=== PATIENT | male | born 1930 | race Caucasian/White ===

== ENCOUNTER → 2016-07-18 | Outpatient (CLI) | payer OTHER ==
[~2016-07-18] MED LIST: ATEN-173 PO; ATEN50TA8 PO; CMD2 PO; HYDC25 PO; HYDR25TA4 PO; LEVO25TA PO; LEVO50TA6 PO; LISI-725 PO; MULT-506 PO; PANT40TA PO; PRLSR20 PO; SIMV40TA2 PO; SIMV80TA2 PO; TCMD2 PO
[2016-07-18 09:39] LABS: BASO % 0.5 %; BASO ABS # 0.02 K/uL (0-0.2); COMPLETE YES; EOS % 3.4 %; IG% 0.2 %; LYMPH % 32.1 %; LYMPH ABS # 1.42 K/uL (1.2-3.4); MEAN CELL VOLUME 90.9 fL (80-100); MEAN PLATELET VOLUME 10.3 fL (7.4-10.4); MONO % 9.3 %; NEUT % 54.5 %; PLATELET COUNT 186 K/uL (130-400); RED BLOOD COUNT 4.73 M/uL (4.7-6.1); WHITE BLOOD COUNT 4.43 K/uL (4.8-10.8)
[2016-07-18 09:57] LABS: ESTIMATED AVERAGE GLUCOSE 120 mg/dl; HA1C FLAG Normal (Normal)
[2016-07-18 10:24] LABS: ALT/SGPT 20 U/L (12-78); AST/SGOT 14 U/L (15-37); BLOOD UREA NITROGEN 18 mg/dl (7-18); BUN/CREATININE RATIO 18.7 (10-20); CALCIUM 8.8 mg/dl (8.5-10.1); CARBON DIOXIDE 32 mmol/L (21-32); CHLORIDE 105 mmol/L (98-107); CHOLESTEROL 138 mg/dl (0-200); CREATININE 0.94 mg/dl (0.60-1.40); GLUCOSE 101 mg/dl (70-99); POTASSIUM 3.8 mmol/L (3.5-5.1); SODIUM 142 mmol/L (136-145)
[2016-07-18 10:25] LABS: RATIO 11.2 mcg/mg (0-30.0)
[2016-07-18 10:35] LABS: ALB/GLOB RATIO 1.1 (0.9-2); ALKALINE PHOSPHATASE 77 U/L (45-117); CHOLESTEROL/HDL RATIO 2.5; HDL CHOLESTEROL 55 mg/dl; LDL CHOLESTEROL CALCULATED 62 mg/dl; TRIGLYCERIDES 103 mg/dl (0-150); VERY LOW DENSITY LIPOPROT CALC 21 mg/dl
== END | disposition home or self-care (01) ==
LOC: C.LAB 08:55
PROVIDERS: ATTEND Nurse Practitioner Family
DX: I48.91 Unspecified atrial fibrillation (principal); E78.5 Hyperlipidemia, unspecified; I71.4 Abdominal aortic aneurysm, without rupture; R73.9 Hyperglycemia, unspecified; E88.81 Metabolic syndrome and other insulin resistance; I10 Essential (primary) hypertension; E03.9 Hypothyroidism, unspecified; K21.9 Gastro-esophageal reflux disease without esophagitis

== ENCOUNTER → 2016-10-02 | Day surgery (SDC) | payer OTHER ==
[2016-09-25 11:26] VITALS: BMI 23.0
[~2016-10-02] VITALS: Ht 182.9 cm; Wt 78.6 kg
[~2016-10-02] MED LIST changes: +LIDOCAINE HCL 2% 2 ML VIAL (20MG/ML) ONE; -PRLSR20 PO; +PROPOFOL IV EMULSION 10 MG/ML 20 ML VIAL IV ONE; -SIMV40TA2 PO
[2016-10-02 10:18] VITALS: Ht 182.9 cm; Wt 78.6 kg
--- NOTE | 2016-10-02 11:10 | Endo History and Physical ---
History & Physical Date of Service: Oct 02, 2016. Chief Complaint: DYSPHAGIA Referring Physician: MANJEET BARTH History of Present Illness 85 yo CM who presents for EGD secondary to dysphagia. Past Medical History Atrial Fibrillation, Arthritis, Cancer, High Cholesterol, Hypertension, Thyroid Disease Past Surgical History Hx Cardiac Surgery: Yes (CARDIOVERSION 1985 - UNSUCCESSFUL) Hx Internal Defibrillator: No Hx Pacemaker: No Hx Abdominal Surgery: Yes (OPEN APPY, AAA REPAIR) Hx of Implantable Prosthesis: No Hx Post-Op Nausea and Vomiting: No Hx Cancer Surgery: Yes (COLON RESECTION) Hx Thoracic Surgery: No Hx Orthopedic: Yes (RT/LT TKA, LT SHOULDER SCOPE) Hx Urinary Tract Surgery: No Family History Colon CA Social History Smoking Status: Former Smoker Hx Substance Use: No Hx Alcohol Use: Yes (RARELY) Allergies Coded Allergies: No Known Allergies (Verified , 10/02/16) Current Medications Reported Home Medications Medications Dose Route/Sig Max Daily Dose Days Date Category Multivitamin (Multivitamins) Tab 1 Tab PO QAM 09/25/16 Reported Zocor (Simvastatin) 80 Mg Tab 0.5 Tab PO QPM 09/25/16 Reported Protonix (Pantoprazole Sodium) 40 Mg Tab 40 Mg PO QAM 09/25/16 Reported Levothyroxine Sodium 50 Mcg Tab 75 Mcg PO QAM 06/14/15 Reported Tenormin (Atenolol) 25 Mg Tab 1 Tab PO BID 08/12/13 Reported Zestril (Lisinopril) 20 Mg Tab 20 Mg PO QAM 02/23/08 Reported Coumadin * (Warfarin Sodium) 2 Mg Tab 2 Mg PO HS 02/23/08 Reported Hctz * (Hydrochlorothiazide) 25 Mg Tab 25 Mg PO QAM 02/23/08 Reported Vital Signs Weight (Kilograms): 78.64 Height (Feet): 6 Height (Inches): 0 Date Time Temp Pulse Resp B/P (MAP) Pulse Ox O2 Delivery O2 Flow Rate FiO2 10/02/16 10:32 36.3 80 20 164/86 (112) 100 Room Air Physical Exam General Appearance: WD/WN, no apparent distress Respiratory/Chest: Auscultation: breath sounds normal Cardiovascular: Heart Auscultation: RRR Abdomen: Bowel Sounds: normal Inspection & Palpation: soft, non-distended, no tenderness, guarding & rebound Assessment and Plan Assessment: 85 yo CM who presents for EGD secondary to dysphagia. Plan: Proceed with EGD.
--- NOTE | 2016-10-02 11:30 | Discharge Instructions ---
Endoscopy Patient Instructions Date / Procedure(s) Performed Oct 02, 2016. EGD Allergy Information Coded Allergies: No Known Allergies (Verified , 10/02/16) Discharge Date / Findings Oct 02, 2016. Esophageal stricture s/p dilation to 20mm Medication Instructions Stopped Medication(s): COUMADIN OK to resume all medications today as prescribed Reported Home Medications Medications Dose Route/Sig Max Daily Dose Days Date Category Multivitamin (Multivitamins) Tab 1 Tab PO QAM 09/25/16 Reported Zocor (Simvastatin) 80 Mg Tab 0.5 Tab PO QPM 09/25/16 Reported Protonix (Pantoprazole Sodium) 40 Mg Tab 40 Mg PO QAM 09/25/16 Reported Levothyroxine Sodium 50 Mcg Tab 75 Mcg PO QAM 06/14/15 Reported Tenormin (Atenolol) 25 Mg Tab 1 Tab PO BID 08/12/13 Reported Zestril (Lisinopril) 20 Mg Tab 20 Mg PO QAM 02/23/08 Reported Coumadin * (Warfarin Sodium) 2 Mg Tab 2 Mg PO HS 02/23/08 Reported Hctz * (Hydrochlorothiazide) 25 Mg Tab 25 Mg PO QAM 02/23/08 Reported Provider Instructions Activity Restrictions - No exercising or heavy lifting for 24 hours. - Do not drink alcohol the day of the procedure. - Do not drive a car or operate machinery until the day after the procedure. - Do not make any important decisions or sign important papers in 24 hours after the procedure. Following Day: - Return to full activity which may include returning to work/school. Diet Start your diet with liquids and light foods (jello, soup, juice, toast). Then eat your usual diet if not nauseated. Treatment For Common After Affects For mild abdominal pain, bloating, or excessive gas: - Rest - Eat lightly - Lie on right side Follow-Up Information Follow-up with MANJEET BARTH as scheduled Anesthesia Information What You Should Know You have had a procedure that required some medicine to reduce anxiety and discomfort. This treatment is called moderate sedation. After receiving the treatment, you may be sleepy, but you will be able to breathe on your own. The effects of the treatment may last for several hours. Follow these instructions along with Activity/Diet recommendations noted above: * Do NOT do anything where dizziness or clumsiness would be dangerous. * Rest quietly at home today, then you can be up and about tomorrow. * Have a responsible person stay with you the rest of today. * You may have had an I.V. today. If so, you may take the dressing off later today. Recommendations Call your doctor if: * Trouble breathing * Continuous vomiting for more than 24 hours * Temperature above 101 degrees * Severe abdominal pain or bloating * Pain not relieved by pain medicine ordered * There is increased drainage or redness from any incision * A large amount of rectal bleeding greater than 2-3 tablespoons. (If you had a polyp/s removed or have hemorrhoids, a small amount of blood - from the rectum is to be expected.) * You have any unanswered questions or concerns. IN THE EVENT OF A SERIOUS EMERGENCY, GO TO THE NEAREST EMERGENCY ROOM Your discharge instructions were prepared by provider Keyon Serrano. Patient Instructions Signature Page Ronaldo Nicole Patient (or Guardian) Signature/Date: I have read and understand the instructions given to me by my caregivers. Caregiver/RN/Doctor Signature/Date: The above-named patient and/or guardian has received patient instructions on this date. + Original Patient Signature Page (only) stays with chart. Please make copy for patient.
--- NOTE | 2016-10-02 11:41 | GI REPORT ---
Procedure Date: 10/02/2016 11:03 AM Procedure: Upper GI endoscopy Indications: Dysphagia Medicines: Monitored Anesthesia Care Complications: No immediate complications. Estimated Blood Loss: Estimated blood loss: none. Procedure: Pre-Anesthesia Assessment: - Prior to the procedure, a History and Physical was performed, and patient medications and allergies were reviewed. The patient's tolerance of previous anesthesia was also reviewed. The risks and benefits of the procedure and the sedation options and risks were discussed with the patient. All questions were answered, and informed consent was obtained. Prior Anticoagulants: The patient has taken Coumadin (warfarin), last dose was 5 days prior to procedure. ASA Grade Assessment: II - A patient with mild systemic disease. After reviewing the risks and benefits, the patient was deemed in satisfactory condition to undergo the procedure. After obtaining informed consent, the endoscope was passed under direct vision. Throughout the procedure, the patient's blood pressure, pulse, and oxygen saturations were monitored continuously. The scope was introduced through the mouth, and advanced to the second part of duodenum. The upper GI endoscopy was accomplished without difficulty. The patient tolerated the procedure well. Findings: One mild benign-appearing, intrinsic stenosis was found. This measured 1.5 cm (inner diameter) x 1 cm (in length) and was traversed. A TTS dilator was passed through the scope. Dilation with an 18-19-20 mm balloon (to a maximum balloon size of 20 mm) dilator was performed. The dilation site was examined and showed moderate improvement in luminal narrowing. The stomach was normal. The examined duodenum was normal. Impression: - Benign-appearing esophageal stenosis. Dilated. - Normal stomach. - Normal examined duodenum. - No specimens collected. Recommendation: - Resume previous diet. - Continue present medications. - Repeat the upper endoscopy PRN for retreatment. - Return to primary care physician as previously scheduled. Keyon Serrano DO 10/02/2016 11:40:45 AM This report has been signed electronically. Note Initiated On: 10/02/2016 11:03 AM I attest to the content of the Intraoperative Record and orders documented therein, exceptions below
--- NOTE | 2016-10-02 11:54 | Anesthesiology Progress Note ---
Anesthesia Post Op Note Date & Time Oct 02, 2016 at 11:54 Vital Signs Pain Intensity: 0 Vital Signs Past 12 Hours Date Time Temp Pulse Resp B/P (MAP) Pulse Ox O2 Delivery O2 Flow Rate FiO2 10/02/16 11:44 67 20 116/81 (93) 96 Room Air 10/02/16 11:30 77 20 111/76 (88) 98 Room Air 10/02/16 10:32 36.3 80 20 164/86 (112) 100 Room Air Notes Mental Status: alert / awake / arousable, participated in evaluation Pt Amnestic to Procedure: Yes Nausea / Vomiting: adequately controlled Pain: adequately controlled Airway Patency, RR, SpO2: stable & adequate BP & HR: stable & adequate Hydration State: stable & adequate Anesthetic Complications: no major complications apparent
[2016-10-02 12:00] VITALS: BP 136/80; PULSE 58; O2SAT 100
== END | disposition home or self-care (01) ==
LOC: C.GI 10:10
PROVIDERS: ATTEND Internal Medicine
DX: K22.2 Esophageal obstruction (principal); R13.10 Dysphagia, unspecified; I48.91 Unspecified atrial fibrillation; M19.90 Unspecified osteoarthritis, unspecified site; E78.00 Pure hypercholesterolemia, unspecified; I10 Essential (primary) hypertension; Z90.89 Acquired absence of other organs; Z96.653 Presence of artificial knee joint, bilateral; Z87.891 Personal history of nicotine dependence; E03.9 Hypothyroidism, unspecified; Z85.038 Personal history of other malignant neoplasm of large intestine; Z92.21 Personal history of antineoplastic chemotherapy

== ENCOUNTER 2016-11-02 09:49 | Emergency (ER) | payer OTHER ==
[~2016-11-02] VITALS: Ht 182.9 cm; Wt 73.2 kg
[~2016-11-02 09:49] MED LIST changes: -ATEN50TA8 PO; -HYDR25TA4 PO; -LEVO25TA PO; -LIDOCAINE HCL 2% 2 ML VIAL (20MG/ML) ONE; -MULT-506 PO; -PANT40TA PO; -PROPOFOL IV EMULSION 10 MG/ML 20 ML VIAL IV ONE; -SIMV80TA2 PO; -TCMD2 PO
[2016-11-02 09:53] VITALS: TEMP 36.6; O2SAT 99; Ht 182.9 cm; Wt 73.2 kg
[2016-11-02] MEDS ORDERED: HYDR25TA4 PO (10:05)
[2016-11-02] MEDS ORDERED: LEVO25TA PO (10:05)
[2016-11-02] MEDS ORDERED: TCMD2 PO (10:05)
[2016-11-02] MEDS ORDERED: ATEN50TA8 PO (10:05)
[2016-11-02] MEDS ORDERED: BACITRACIN/POLYMYXIN B OINT 15 GM TUBE EXT STA (10:05)
--- NOTE | 2016-11-02 10:08 | EMERGENCY ROOM VISIT NOTE ---
ED Visit Note First contact with patient: 10:00 CHIEF COMPLAINT: Finger laceration HISTORY OF PRESENT ILLNESS: This 85-year-old male patient presents to the emergency department after cutting the left fourth fingertip with a cold patcher knife. Patient states that he was trying to slice frozen wiseman and the knife slipped catching his finger. The bleeding has not stopped, and patient does note that he takes Coumadin. Denies weakness or numbness of the finger. The patient rates the pain as throbbing/stinging and 2/10. The patient denies any other injuries. The patient's Tetanus shot is up to date. REVIEW OF SYSTEMS: A 6 system review of systems was completed with positives and pertinent negatives listed in the HPI. ALLERGIES: No known allergies MEDICATIONS: Reviewed in chart PMH: Atrial fibrillation on Coumadin, hypertension, GERD, hyperlipidemia SOCIAL HISTORY: Lives at home with his . Former smoker, quit many years ago. Denies recreational drug use. PHYSICAL EXAM: Vital Signs: Reviewed Nurse's notes, vital signs stable. GENERAL : Pleasant and cooperative, in no acute distress, well-developed, well- nourished. SKIN: There is a 3 cm long laceration on the palmar aspect of the left fourth finger. The edges gape apart with traction. There is no foreign material in the wound and it looks clean. There is moderate bleeding. No deep structures such as tendons, bones, or significant blood vessels are seen in the base of the wound. Normal strength and movement of the distal left fourth finger. Capillary refill less than 2 seconds. Normal sensation to light and sharp touch. EMERGENCY DEPARTMENT COURSE: I examined the patient. Verbal consent was obtained to perform the procedure. Using sterile technique the wound was cleansed with Betadine. The area was sterilely draped. 3 ml of 1% buffered lidocaine was used to anesthetize the left fourth finger with a digital block. A finger tourniquet was applied. Once the patient was anesthetized, the wound was copiously irrigated under pressure with sterile saline. The wound was explored and was as described above. The laceration was repaired using 7 simple interrupted 5-0 nylon sutures with the wound edges being well approximated. The tourniquet was on the finger for approximately 15 minutes, with immediate return of blood flow upon removal. The patient tolerated the procedure well. Hemostasis was achieved. The area was cleaned with sterile saline and dressed with bacitracin ointment and bandage. The patient was instructed on wound care and follow-up, he verbalized understanding. The patient was discharged home in good condition. Current/Historical Medications Scheduled Atenolol (Tenormin), 25 MG PO DAILY Hydrochlorothiazide (Hctz), 12.5 MG PO DAILY Levothyroxine Sodium (Synthroid), 25 MCG PO DAILY Lisinopril (Zestril), 20 MG PO QAM Multivitamin (Multivitamin), 1 TAB PO QAM Pantoprazole (Protonix), 40 MG PO QAM Simvastatin (Zocor), 40 MG PO QPM Warfarin Sod (Coumadin), 2 MG PO DAILY Allergies Coded Allergies: No Known Allergies (Verified , 11/02/16) Vital Signs Date Time Temp Pulse Resp B/P (MAP) Pulse Ox O2 Delivery O2 Flow Rate FiO2 11/02/16 11:30 72 16 155/92 11/02/16 09:53 36.6 95 18 142/82 99 Room Air Medications Administered Medications (Trade) Dose Ordered Sig/Paulino Route Start Time Stop Time Status Last Admin Dose Admin Lidocaine HCl (Buffered Lidocaine 1% Inj) 20 ml ONE ONCE INFIL 11/02/16 10:15 11/02/16 10:16 DC 11/02/16 10:17 20 ML Bacitracin/ Polymyxin B Sulfate (Polysporin Oint) 1 appln NOW STAT EXT 11/02/16 10:05 11/02/16 10:06 DC 11/02/16 10:17 1 APPLN Departure Information Impression Primary Impression: Laceration of left ring finger Dispostion Home / Self-Care Condition GOOD Referrals Riccardo Dhillon III, CRNP (PCP) Patient Instructions ED Laceration Hand, [facility] Additional Instructions Follow-up with your PCP, in urgent care, or ER for suture removal in 8-10 days. Keep the dressing on your finger for the next 24-48 hours to ensure that bleeding has fully stopped. Keep wound clean and dry. You may wash the wound with running water and soap. Do not immerse under water until the sutures have been removed. Do not allow any crusting or dried blood to accumulate on sutures. If this occurs, use a 1:1 solution of hydrogen peroxide/water on a Q-tip to clean the wound. Use an antibiotic ointment for 3-4 days, then let wound dry. Ice and elevate for swelling and pain. Ibuprofen 600 mg and Tylenol 1000 mg every 8 hrs as needed for pain. Keep covered when in sun until sutures removed then SPF 50 or higher for one year. Vitamin E oil if desired two weeks after suture removal for reduction of scar. Please seek immediate medical attention for any signs of infection (increasing pain, redness, swelling, pus drainage, streaking up the arm, fever/chills). Problem Qualifiers Primary Impression: Laceration of left ring finger Encounter type: initial encounter Damage to nail status: without damage Foreign body presence: without foreign body Qualified Codes: S61.215A - Laceration without foreign body of left ring finger without damage to nail, initial encounter
[2016-11-02] MEDS ORDERED: XYLOCAINE 1%/SOD BICARB 20 ML VIAL INFIL ONE (10:15)
--- NOTE | 2016-11-02 10:58 | EMERGENCY ROOM VISIT NOTE ---
ED Visit Note First contact with patient: 10:00 Patient was seen by our PA/ASSET PROTECTION AGENT. I was involved in the patient's care and did evaluate the patient myself. I was involved in the care throughout the ER stay. The patient's finger laceration has been repaired. He is stable for discharge. He will watch for infection or difficulty with the function of the finger.
[2016-11-02] MEDS ORDERED: MULT-506 PO (11:23)
[2016-11-02] MEDS ORDERED: SIMV80TA2 PO (11:23)
[2016-11-02] MEDS ORDERED: PANT40TA PO (11:23)
[2016-11-02 11:30] VITALS: BP 155/92; PULSE 72
== END 2016-11-02 11:32 | disposition home or self-care (01) ==
LOC: C.EDB 09:50
DX: S61.215A Laceration without foreign body of left ring finger without damage to nail, initial encounter (principal); W26.0XXA Contact with knife, initial encounter; I48.91 Unspecified atrial fibrillation; I10 Essential (primary) hypertension; K21.9 Gastro-esophageal reflux disease without esophagitis; E78.5 Hyperlipidemia, unspecified; Z87.891 Personal history of nicotine dependence; Z79.01 Long term (current) use of anticoagulants

== ENCOUNTER → 2016-12-12 | Outpatient (CLI) | payer OTHER ==
[~2016-12-12] MED LIST changes: -ATEN-173 PO; +ATEN50TA8 PO; -CMD2 PO; -HYDC25 PO; +HYDR25TA4 PO; +LEVO25TA PO; -LEVO50TA6 PO; +MULT-506 PO; +PANT40TA PO; +SIMV80TA2 PO; +TCMD2 PO
[2016-12-12 10:15] LABS: BASO % 0.5 %; BASO ABS # 0.02 K/uL (0-0.2); COMPLETE YES; EOS % 2.3 %; HEMATOCRIT 39.3 % (42-52); IG% 0.2 %; LYMPH % 25.9 %; LYMPH ABS # 1.14 K/uL (1.2-3.4); MEAN CELL VOLUME 89.3 fL (80-100); MEAN CORPUSCULAR HEMOGLOBIN 30.9 pg (25-34); MEAN CORPUSCULAR HGB CONC 34.6 g/dl (32-36); MEAN PLATELET VOLUME 10.5 fL (7.4-10.4); MONO % 7.5 %; NEUT % 63.6 %; PLATELET COUNT 159 K/uL (130-400)
[2016-12-12 10:43] LABS: BLOOD UREA NITROGEN 11 mg/dl (7-18); BUN/CREATININE RATIO 12.7 (10-20); CALCIUM 9.5 mg/dl (8.5-10.1); CARBON DIOXIDE 31 mmol/L (21-32); CHLORIDE 104 mmol/L (98-107); CREATININE 0.85 mg/dl (0.60-1.40); GLUCOSE 108 mg/dl (70-99); POTASSIUM 4.1 mmol/L (3.5-5.1); SODIUM 140 mmol/L (136-145)
== END ==
LOC: C.LAB 09:00
PROVIDERS: ATTEND Nurse Practitioner Family
DX: I48.91 Unspecified atrial fibrillation (principal); E78.5 Hyperlipidemia, unspecified; I10 Essential (primary) hypertension; E88.81 Metabolic syndrome and other insulin resistance; R73.9 Hyperglycemia, unspecified; E03.9 Hypothyroidism, unspecified

== ENCOUNTER → 2016-12-24 | Outpatient (CLI) | payer OTHER ==
--- NOTE | 2016-12-24 10:01 | DIAGNOSTIC IMAGING REPORT ---
ABDOMINAL AORTIC ULTRASOUND CLINICAL HISTORY: Follow-up of abdominal aortic aneurysm. COMPARISON STUDY: Abdominal aortic ultrasound 05/30/2015. FINDINGS: Slight increase in size of the aneurysmal sac which currently measures 6.8 x 5.6 cm. The patient is status post endograft repair of an abdominal aortic aneurysm. Bilateral iliac limbs remain stable. IMPRESSION: Continued slight increase in size of the aneurysmal sac which currently measures 6.8 x 5.6 cm. This is concerning for an endoleak. Dedicated CTA of the abdomen is recommended for further evaluation. Electronically signed by: Dae Nur M.D. 12/24/2016 10:00 AM Dictated Date/Time: 12/24/2016 9:55 AM
== END | disposition home or self-care (01) ==
LOC: C.ULTR 09:07
PROVIDERS: ATTEND Nurse Practitioner Family
DX: I71.4 Abdominal aortic aneurysm, without rupture (principal)

== ENCOUNTER → 2017-01-03 | Outpatient (CLI) | payer OTHER ==
[~2017-01-03] MED LIST changes: +OPTIRAY 320 IV PRN
--- NOTE | 2017-01-03 10:02 | DIAGNOSTIC IMAGING REPORT ---
ANGIO ABD/PELVIS COMBO CLINICAL HISTORY: Abnormal ultrasound Aneurysm TECHNIQUE: Transaxial acquisition with multi axial reformatted images COMPARISON STUDY: Ultrasound 12/24/2016 FINDINGS: Lung bases are clear. Liver enhances uniformly. There is 13 cm left renal cyst. Pancreas is uniform throughout. Right kidney shows mild cortical scarring but is negative for space-occupying lesion or hydronephrosis. There is a large aneurysm the abdominal aorta with evidence for a vascular stent repair. Superior aspect of the stent is immediately inferior to the origin of the superior mesenteric artery. It extends through the aneurysm to the proximal aspects of the iliac arteries bilaterally. Maximum diameter of the [place] arterial aneurysm is 6.5 x 5.5 cm. Postcontrast images show appropriate enhancement of the endograft. No evidence for contrast extravasation is identified. Paravertebral soft tissues are considered unremarkable. The arterial structures of the pelvis demonstrate moderate atherosclerotic changes throughout. There is a 50% narrowing of the mid left iliac artery with no evidence for high-grade stenotic process. Bowel pattern is considered nonobstructive. Spleen is uniform in appearance. Bowel pattern is considered nonobstructive. There are degenerative changes of the lumbar spine as well as bony pelvis. IMPRESSION: 1. 6.5 x 5.5 cm round [place] aneurysm of the abdominal aorta with evidence for an endograft stent repair. 2. The stent and associated lumen appears intact as well as patent. 3. No evidence for vascular occlusion, dissection, or leak. 4. Atherosclerotic change of the [place] arterial structures of the soft tissue pelvis. 5. Large right renal cyst. The above report was generated using voice recognition software. It may contain grammatical, syntax or spelling errors. Electronically signed by: Navneet Camarena M.D. 01/03/2017 10:00 AM Dictated Date/Time: 01/03/2017 9:48 AM
== END | disposition home or self-care (01) ==
LOC: C.CTS 09:15
PROVIDERS: ATTEND Nurse Practitioner Family
DX: I71.4 Abdominal aortic aneurysm, without rupture (principal)

== ENCOUNTER → 2017-06-10 | Outpatient (CLI) | payer OTHER ==
[~2017-06-10] MED LIST changes: -OPTIRAY 320 IV PRN
--- NOTE | 2017-06-10 10:48 | DIAGNOSTIC IMAGING REPORT ---
(BARIUM SWALLOW) ESOPHAGUS CLINICAL HISTORY: R13.10 [id number] COMPARISON STUDY: Barium swallow 06/10/2015. FLUOROSCOPY TIME: 0.5 minutes. FINDINGS: Mild esophageal dysmotility. The test was terminated early due to aspiration during the initial swallows. No hiatus hernia identified. The esophagus is likely normal in caliber. IMPRESSION: The test was terminated early due to aspiration. Mild esophageal dysmotility. Consider video swallow for follow-up. Electronically signed by: Dae Nur M.D. 06/10/2017 10:46 AM Dictated Date/Time: 06/10/2017 10:45 AM
== END | disposition home or self-care (01) ==
LOC: C.RAD 09:24
PROVIDERS: ATTEND Physician Assistant
DX: R13.10 Dysphagia, unspecified (principal)

== ENCOUNTER → 2017-06-18 | Outpatient (CLI) | payer OTHER ==
[~2017-06-18] MED LIST changes: +PRLSR20 PO
--- NOTE | 2017-06-18 13:44 | DIAGNOSTIC IMAGING REPORT ---
VIDEO SWALLOW CLINICAL HISTORY: 86 years-old Male presenting with R13.10 [id number]. TECHNIQUE: Video fluoroscopic evaluation of swallowing was performed in the AP and lateral projections in conjunction with speech pathology. The patient was administered various textures, including nectar-thick and thin liquid barium, a barium coated wafer, and barium pudding. COMPARISON: Barium esophagram from 06/10/2017 and 07/05/2015. FINDINGS: Trace silent aspiration observed with thin liquids. Chin tuck maneuver did not decrease silent aspiration. Andrews thick liquids resulted in intermittent trace silent aspiration. No aspiration was observed with pudding or solid consistencies. Overall decreased elevation of the larynx and during swallow. Residual in the vallecula and piriform sinuses noted. Overall delayed swallow. Fluoroscopy dosage (mGy): Not available. Fluoroscopy time: 1.7 minutes. Number of fluoroscopic spot images: 0. IMPRESSION: 1. Intermittent silent aspiration of liquids. 2. Please see the speech pathologist report for detailed findings and recommendations. Electronically signed by: Andre Fortune M.D. 06/18/2017 1:43 PM Dictated Date/Time: 06/18/2017 1:39 PM
--- NOTE | 2017-06-18 15:52 | SWALLOWING EVALUATION ---
HISTORY: This 86 year old man was referred to [facility] ([facility]) for a Video Fluoroscopic Swallow Study (VFSS) in order to rule out aspiration, and identify the safest consistencies for possible return to oral intake. The patient participated in a Barium Swallow Study on 06/10/17. The patient aspirated during this study and was also found to have mild esophageal dysmotility. Similar findings were noted on previous Barium Swallow on 06/10/15, with a follow up video swallow study being completed on 07/05/15. No aspiration identified for that study. And EGD completed 10/02/16 revealed one site of stenosis which was dilated. PMH is significant for: A-fib, arthritis, thyroid disease, and HTN. He denies ever having pneumonia. Current diet is regular. PROCEDURE: The patient was seen in the Radiology Department of [facility] for the VFSS. Cursory examination of the oral cavity revealed and upper denture and lower partial of adequate fit. Movement of the articulators was wnl. The patient was positioned upright on a stool for the procedure and was viewed in both the Anterior-Posterior (A-P) and Lateral planes. Volitional phonation exercises completed in the A-P plane revealed bilateral vocal fold movement and vocal intensity was wnl. In the lateral plane, the patient was given the following boluses: 1 tsp. thin liquid barium x 2, single swallow thin liquid barium self-presented from a cup x2 (one with a chin tuck), 1 tsp. nectar-thick liquid barium, single swallow nectar-thick liquid barium self-presented from a cup, 1 tsp. barium pudding, and 1 club cracker coated in barium pudding. The patient was then repositioned into the A-P plane and given the following boluses: 1 tsp. nectar thick barium and 1 tsp. barium pudding. RESULTS: Oral Stage: Lip closure was adequate. The patient was able to maintain a cohesive liquid bolus upon command. Mastication was mildly slow and prolonged. Lingual motion for bolus transport was also slowed. There was a collection of retention along the tongue and palate after the initial swallow. The initiation of the pharyngeal swallow was delayed and triggered when the bolus head reached the pyriforms. Pharyngeal Stage: Soft palate elevation was complete. Laryngeal elevation revealed partial superior movement of the thyroid cartilage and partial approximation of the arytenoids to the epiglottic base. Anterior hyoid excursion was partially reduced. Epiglottic deflection was complete. Laryngeal vestibular closure was in-complete as evidenced by a narrow column of contrast being located in the vestibule at the height of the swallow. The pharyngeal stripping wave was present yet diminished. Pharyngeal contraction was in-complete. There was partial distention and duration to the opening of the pharyngoesophageal segment (PES). Tongue base retraction was reduced, with a narrow and at times wide column of contrast located between the tongue base and pharyngeal wall during the swallow. There was a collection retention located in the valleculae, the laryngeal aspect of the epiglottis, along the posterior pharyngeal wall, and in the pyriforms after the swallow. The patient presented with laryngeal penetration and trace aspiration of both thin and nectar thick liquids. Aspiration was noted just below the vocal folds and was silent. A majority of this redirected. A chin tuck was not effective to prevent aspiration. No other laryngeal penetration or aspiration was identified. Aspiration is attributed to the patient delayed swallow and generalized pharyngeal weakness. Throat clearing and coughing did not clear the retention along the laryngeal aspect of the epiglottis. The retention that remained in the pharynx did not fully clear. Use of multiple effortful swallows did assist in reducing the retention. Cervical osteophytes were present but the presence of these had minimal impact on bolus flow through the pharynx. Esophageal Stage: There was complete esophageal clearance. SUMMARY/RECOMMENDATIONS: The patient presents with moderate javier-pharyngeal dysphagia. He also has known esophageal dysfunction. He is a HIGH risk for aspiration, as this was evidenced with both thin and nectar thick liquids. As the patient has been tolerating the aspiration (never having had pneumonia and is active), the following is recommended: 1. Moist regular diet, thin liquids. 2. Aspiration and GERD precautions. NO straws. Fully upright for meals and for 30 minutes after meals. Do not lay flat, elevate head of the bed to at least 30 degrees at all time, to include while sleeping. 3. Safe swallow strategies: SMALL bites/sips. Multiple effortful swallows with each bites/sip. 4. Stringent oral care to include brushing all surfaces of the mouth and tongue prior to and after meals, and before bed. This will reduce oral bacteria that can be aspirated in saliva. 5. Follow up [employer] services for carryover of diet and safe swallow strategies. Patient would also benefit generalized pharyngeal strengthening exercises to include but not limited to: Maskao Maneuver and the Prabhakar Maneuver. Results and recommendations were discussed with the patient immediately following the study with verbal understanding. He was also provided with education on how to complete the Rosa Maneuver and performed return demonstration. Thank you for referral of this patient. Please contact me at if any additional information is needed.
== END | disposition home or self-care (01) ==
LOC: C.RAD 12:51
PROVIDERS: ATTEND Physician Assistant
DX: R13.10 Dysphagia, unspecified (principal)

== ENCOUNTER → 2017-07-19 | Day surgery (SDC) | payer OTHER ==
[2017-06-26 10:16] VITALS: BMI 23.0
[2017-07-09 15:19] VITALS: Ht 185.4 cm; Wt 79.5 kg
[~2017-07-19] VITALS: Ht 185.4 cm; Wt 79.5 kg
[~2017-07-19] MED LIST changes: -ATEN50TA8 PO; -LEVO25TA PO; +LEVO75TA5 PO; +METO25TA4 PO; -MULT-506 PO; -PRLSR20 PO; +SODIUM CHLORIDE 0.9% 500ML 500 ML IV ONE
--- NOTE | 2017-07-19 12:03 | Endo History and Physical ---
History & Physical Date of Service: July 19, 2017. Chief Complaint: Dysphagia Referring Physician: Riccardo Dhillon History of Present Illness 86 yo CM who presents for EGD secondary to dysphagia. Past Medical History Atrial Fibrillation, Arthritis, Cancer, High Cholesterol, Hypertension, Thyroid Disease Past Surgical History Hx Cardiac Surgery: Yes (AAA REPAIR 5 YEARS AGO AT [place]) Hx Internal Defibrillator: No Hx Pacemaker: No Hx Abdominal Surgery: Yes (APPENDECTOMY ) Hx of Implantable Prosthesis: No Hx Post-Op Nausea and Vomiting: No Hx Cancer Surgery: Yes (COLON CANCER-RESECTION 1984, SKIN LESIONS REMOVED) Hx Thoracic Surgery: No Hx Orthopedic: Yes (BILATERAL TKA, RIGHT ANKLE FRACTURE REPAIR, LEFT ELBOW) Hx Urinary Tract Surgery: No Family History Colon CA Social History Smoking Status: Former Smoker Hx Substance Use: No Hx Alcohol Use: Yes (RARELY DRINKS BEER) Allergies Coded Allergies: No Known Allergies (Verified , 07/09/17) Current Medications Reported Home Medications Medications Dose Route/Sig Max Daily Dose Days Date Category Protonix (Pantoprazole Sodium) 40 Mg Tab 40 Mg PO DAILY 07/09/17 Reported Toprol Xl (Metoprolol Succinate) 25 Mg Tabcr 1 Tab PO BID 30 07/09/17 Reported Levothyroxine Sodium 75 Mcg Tab 1 Tab PO DAILY 30 07/09/17 Reported Coumadin (Warfarin Sod) 2 Mg Tab 2 Mg PO DAILY 11/02/16 Reported Hctz (Hydrochlorothiazide) 25 Mg Tab 25 Mg PO DAILY 11/02/16 Reported Zocor (Simvastatin) 80 Mg Tab 40 Mg PO QPM 09/25/16 Reported Zestril (Lisinopril) 20 Mg Tab 20 Mg PO QAM 02/23/08 Reported Vital Signs Weight (Kilograms): 79.55 Height (Feet): 6 Height (Inches): 1 Physical Exam General Appearance: WD/WN, no apparent distress Respiratory/Chest: Auscultation: breath sounds normal Cardiovascular: Heart Auscultation: RRR Abdomen: Bowel Sounds: normal Inspection & Palpation: soft, non-distended, no tenderness, guarding & rebound Assessment and Plan Assessment: 86 yo CM who presents for EGD secondary to dysphagia. Plan: Proceed with EGD.
--- NOTE | 2017-07-19 13:08 | Discharge Instructions ---
Endoscopy Patient Instructions Date / Procedure(s) Performed July 19, 2017. EGD Allergy Information Coded Allergies: No Known Allergies (Verified , 07/09/17) Discharge Date / Findings July 19, 2017. Schatzki's ring s/p dilation to 20mm Hiatal hernia Medication Instructions Stopped Medication(s): no Warfarin since Saturday OK to resume all medications today as prescribed Reported Home Medications Medications Dose Route/Sig Max Daily Dose Days Date Category Protonix (Pantoprazole Sodium) 40 Mg Tab 40 Mg PO DAILY 07/09/17 Reported Toprol Xl (Metoprolol Succinate) 25 Mg Tabcr 1 Tab PO BID 30 07/09/17 Reported Levothyroxine Sodium 75 Mcg Tab 1 Tab PO DAILY 30 07/09/17 Reported Coumadin (Warfarin Sod) 2 Mg Tab 2 Mg PO DAILY 11/02/16 Reported Hctz (Hydrochlorothiazide) 25 Mg Tab 25 Mg PO DAILY 11/02/16 Reported Zocor (Simvastatin) 80 Mg Tab 40 Mg PO QPM 09/25/16 Reported Zestril (Lisinopril) 20 Mg Tab 20 Mg PO QAM 02/23/08 Reported Provider Instructions Activity Restrictions - No exercising or heavy lifting for 24 hours. - Do not drink alcohol the day of the procedure. - Do not drive a car or operate machinery until the day after the procedure. - Do not make any important decisions or sign important papers in 24 hours after the procedure. Following Day: - Return to full activity which may include returning to work/school. Diet Start your diet with liquids and light foods (jello, soup, juice, toast). Then eat your usual diet if not nauseated. Treatment For Common After Affects For mild abdominal pain, bloating, or excessive gas: - Rest - Eat lightly - Lie on right side Follow-Up Information Follow-up with TAB Redman III as scheduled Anesthesia Information What You Should Know You have had a procedure that required some medicine to reduce anxiety and discomfort. This treatment is called moderate sedation. After receiving the treatment, you may be sleepy, but you will be able to breathe on your own. The effects of the treatment may last for several hours. Follow these instructions along with Activity/Diet recommendations noted above: * Do NOT do anything where dizziness or clumsiness would be dangerous. * Rest quietly at home today, then you can be up and about tomorrow. * Have a responsible person stay with you the rest of today. * You may have had an I.V. today. If so, you may take the dressing off later today. Recommendations Call your doctor if: * Trouble breathing * Continuous vomiting for more than 24 hours * Temperature above 101 degrees * Severe abdominal pain or bloating * Pain not relieved by pain medicine ordered * There is increased drainage or redness from any incision * A large amount of rectal bleeding greater than 2-3 tablespoons. (If you had a polyp/s removed or have hemorrhoids, a small amount of blood - from the rectum is to be expected.) * You have any unanswered questions or concerns. IN THE EVENT OF A SERIOUS EMERGENCY, GO TO THE NEAREST EMERGENCY ROOM Your discharge instructions were prepared by provider Keyon Serrano. Patient Instructions Signature Page Ronaldo Nicole Patient (or Guardian) Signature/Date: I have read and understand the instructions given to me by my caregivers. Caregiver/RN/Doctor Signature/Date: The above-named patient and/or guardian has received patient instructions on this date. + Original Patient Signature Page (only) stays with chart. Please make copy for patient.
--- NOTE | 2017-07-19 13:14 | GI REPORT ---
Patient Name: Ronaldo Nicole Procedure Date: 07/19/2017 12:52 PM Date of : 1930 Admit Type: Outpatient Age: 86 Gender: Male Attending MD: Keyon Serrano DO Procedure: Upper GI endoscopy Providers: Keyon Serrano DO Referring MD: Riccardo Dhillon Indications: Dysphagia Medicines: Monitored Anesthesia Care Complications: No immediate complications. Estimated Blood Loss: Estimated blood loss: none. Procedure: Pre-Anesthesia Assessment: - Prior to the procedure, a History and Physical was performed, and patient medications and allergies were reviewed. The patient's tolerance of previous anesthesia was also reviewed. The risks and benefits of the procedure and the sedation options and risks were discussed with the patient. All questions were answered, and informed consent was obtained. Prior Anticoagulants: The patient has taken Coumadin (warfarin), last dose was 5 days prior to procedure. ASA Grade Assessment: III - A patient with severe systemic disease. After reviewing the risks and benefits, the patient was deemed in satisfactory condition to undergo the procedure. After obtaining informed consent, the endoscope was passed under direct vision. Throughout the procedure, the patient's blood pressure, pulse, and oxygen saturations were monitored continuously. The scope was introduced through the mouth, and advanced to the second part of duodenum. The upper GI endoscopy was accomplished without difficulty. The patient tolerated the procedure well. Findings: A mild Schatzki ring (acquired) was found at the gastroesophageal junction. A TTS dilator was passed through the scope. Dilation with an 18-19-20 mm balloon dilator was performed to 20 mm. The dilation site was examined and showed mild improvement in luminal narrowing. A small hiatal hernia was present. The examined duodenum was normal. Impression: - Mild Schatzki ring. Dilated. - Small hiatal hernia. - Normal examined duodenum. - No specimens collected. Recommendation: - Resume previous diet. - Continue present medications. - Return to primary care physician as previously scheduled. Keyon Serrano DO 07/19/2017 1:13:54 PM This report has been signed electronically. Note Initiated On: 07/19/2017 12:52 PM Number of Addenda: 0 I attest to the content of the Intraoperative Record and orders documented therein, exceptions below {[id number]}
--- NOTE | 2017-07-19 13:38 | Anesthesiology Progress Note ---
Anesthesia Post Op Note Date & Time July 19, 2017 at 13:37 Vital Signs Pain Intensity: 4 Vital Signs Past 12 Hours Date Time Temp Pulse Resp B/P (MAP) Pulse Ox O2 Delivery O2 Flow Rate FiO2 07/19/17 13:12 90 16 113/85 (94) 99 Room Air 07/19/17 12:13 36.5 83 20 145/87 (106) 98 Room Air Notes Mental Status: alert / awake / arousable, participated in evaluation Pt Amnestic to Procedure: Yes Nausea / Vomiting: adequately controlled Pain: adequately controlled Airway Patency, RR, SpO2: stable & adequate BP & HR: stable & adequate Hydration State: stable & adequate Anesthetic Complications: no major complications apparent
[2017-07-19 13:42] VITALS: BP 129/86; PULSE 78; O2SAT 92
== END | disposition home or self-care (01) ==
LOC: C.GI 11:48
PROVIDERS: ATTEND Internal Medicine
DX: R13.10 Dysphagia, unspecified (principal); K44.9 Diaphragmatic hernia without obstruction or gangrene; I10 Essential (primary) hypertension; I73.9 Peripheral vascular disease, unspecified; I48.2 Chronic atrial fibrillation; K22.2 Esophageal obstruction; E07.9 Disorder of thyroid, unspecified; E78.00 Pure hypercholesterolemia, unspecified; Z90.49 Acquired absence of other specified parts of digestive tract; Z85.038 Personal history of other malignant neoplasm of large intestine; Z87.891 Personal history of nicotine dependence; Z79.01 Long term (current) use of anticoagulants

== ENCOUNTER → 2017-10-30 | Outpatient (CLI) | payer OTHER ==
[~2017-10-30] MED LIST changes: +CYAN10005 PO; +METH-445 PO; -SODIUM CHLORIDE 0.9% 500ML 500 ML IV ONE
[2017-10-30 14:37] LABS: BASO % 0.2 %; BASO ABS # 0.01 K/uL (0-0.2); EOS % 1.2 %; EOS ABS # 0.06 K/uL (0-0.5); HEMATOCRIT 38.6 % (42-52); HEMOGLOBIN 12.8 g/dL (14.0-18.0); IG# 0.01 K/uL (0.00-0.02); LYMPH % 27.4 %; LYMPH ABS # 1.38 K/uL (1.2-3.4); MEAN CORPUSCULAR HEMOGLOBIN 29.8 pg (25-34); MEAN CORPUSCULAR HGB CONC 33.2 g/dl (32-36); MEAN PLATELET VOLUME 10.5 fL (7.4-10.4); MONO % 8.5 %; MONO ABS # 0.43 K/uL (0.11-0.59); NEUT % 62.5 %; NEUT ABS # 3.15 K/uL (1.4-6.5); PLATELET COUNT 182 K/uL (130-400); RED CELL DISTRIBUTION WIDTH CV 13.2 % (11.5-14.5); WHITE BLOOD COUNT 5.04 K/uL (4.8-10.8)
[2017-10-30 15:23] LABS: ALBUMIN 3.5 gm/dl (3.4-5.0); ALKALINE PHOSPHATASE 74 U/L (45-117); ALT/SGPT 14 U/L (12-78); AST/SGOT 12 U/L (15-37); BLOOD UREA NITROGEN 15 mg/dl (7-18); CALCIUM 8.8 mg/dl (8.5-10.1); CARBON DIOXIDE 32 mmol/L (21-32); CREATININE 1.05 mg/dl (0.60-1.40); GLUCOSE 102 mg/dl (70-99); POTASSIUM 4.3 mmol/L (3.5-5.1); SODIUM 140 mmol/L (136-145); TOTAL PROTEIN 7.4 gm/dl (6.4-8.2)
== END | disposition home or self-care (01) ==
LOC: C.LAB 13:19
PROVIDERS: ATTEND Nurse Practitioner Family
DX: R53.83 Other fatigue (principal); I48.91 Unspecified atrial fibrillation; R06.02 Shortness of breath